=== PATIENT | male | born 1970 | race Caucasian/White ===

== ENCOUNTER 2021-08-25 10:15 | Emergency (ER) | payer MEDICAID, OTHER ==
[~2021-08-25] VITALS: Ht 185.4 cm; Wt 136.1 kg
[~2021-08-25 10:15] MED LIST: ACET-2619
[2021-08-25 10:18] VITALS: BP 123/79
--- NOTE | 2021-08-25 10:24 | NUR ---
PT AMB TO BED 9
--- NOTE | 2021-08-25 10:29 | NUR ---
50 Y MALE WITH C/O LLQ ABD PAIN X TODAY. PT STATED HE LAST DRANK BEER & SMOKED MARIJUANA X YESTERDAY, WHICH MADE THE PAIN WORSE. PT +N/-V/-D AT THIS TIME. LAST BM WAS LAST NIGHT AND WAS NORMAL FOR PATIENT. BOWEL SOUNDS ACTIVE AT THIS TIME AND NO TENDERNESS NOTED. PT STATED PAIN IS CURRENTLY 8/10 AND SHARP LIKE PAIN. PT SKIN DRY AND INTACT AND THIS TIME. 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
--- NOTE | 2021-08-25 11:01 | NUR ---
DR. MOLINA BEDSIDE EVALUATING PT
--- NOTE | 2021-08-25 11:25 | NUR ---
PT AMBULATED TO RESTROOM FOR UA COLLECTION.
[2021-08-25] MEDS: MORPHINE SULFATE 4 MG/ML SYR IVP ONE (11:26)
--- NOTE | 2021-08-25 11:28 | NUR ---
PT AMBULATED TO ER BED 9 WITH A STEADY GAIT.
--- NOTE | 2021-08-25 11:31 | NUR ---
20 G IV ESTABLISHED IN R AC AND BLOOD WORK COLLECTED FROM IV.
--- NOTE | 2021-08-25 11:31 | NUR ---
BLOOD WORK COLLECTED AND URINE WALKED OVER TO LAB BY SUPPORTIVE EMPLOYMENT CASE MANAGER CANDELARIO
[2021-08-25 11:44] LABS: BASOPHILS % (AUTO) 0.4 % (0.0-2.0); EOSINOPHILS % (AUTO) 0.4 % (0.0-4.0); HEMATOCRIT 40.8 % (36-52); LYMPHOCYTES # (AUTO) 1.3 K/uL (2.0-11.5); LYMPHOCYTES % (AUTO) 13.5 % (20.5-51.1); MEAN CORPUSCULAR HEMOGLOBIN 31 pg (27-31); MEAN CORPUSCULAR HGB CONC 34 g/dL (33-37); MEAN CORPUSCULAR VOLUME 90.9 fL (80-94); MONOCYTES # (AUTO) 0.5 K/uL (0.8-1.0); MONOCYTES % (AUTO) 5.1 % (1.7-9.3); NEUTROPHILS # (AUTO) 7.7 K/uL (1.8-7.7); NEUTROPHILS % (AUTO) 80.6 % (42.2-75.2); PLATELET COUNT (AUTO) 286 K/uL (140-450); RED BLOOD CELL COUNT(AUTO) 4.48 MIL/uL (4.20-6.10); RED CELL DISTRIBUTION WIDTH 13.5 % (11.6-13.7); WHITE BLOOD COUNT (AUTO) 9.5 K/uL (4.8-10.8)
[2021-08-25 11:47] LABS: APPEARANCE,URINE CLEAR (CLEAR); BILIRUBIN,URINE NEGATIVE (NEGATIVE); BLOOD, URINE 3+ (NEGATIVE); COLOR,URINE YELLOW (YELLOW); LEUKOCYTE ESTERASE ,URINE NEGATIVE (NEGATIVE); NITRITE, URINE NEGATIVE (NEGATIVE); UGLUCOSE 1+ (NEGATIVE)
[2021-08-25 11:50] LABS: ANION GAP 14.5 (8-16); CARBON DIOXIDE 29.4 mmol/L (21-32); CREATININE 1.1 mg/dL (0.6-1.3); POTASSIUM 3.9 mmol/L (3.5-5.1)
[2021-08-25 11:54] LABS: WBC,URINE 0-5 /HPF (0-5)
[2021-08-25 11:55] LABS: RBC,URINE 50-80 /HPF (0-5)
[2021-08-25 12:02] LABS: ALBUMIN 3.9 g/dL (3.4-5.0); TOTAL BILIRUBIN 0.3 mg/dL (0.0-1.0)
--- NOTE | 2021-08-25 12:20 | NUR ---
Patient appears to be resting comfortably in bed. Vital Signs within normal limits. Respirations even and unlabored.
[2021-08-25] MEDS ORDERED: IBUP-2213 PO (13:26)
[2021-08-25 13:41] VITALS: BP 139/89
== END 2021-08-25 13:41 | disposition home or self-care (01) ==
LOC: MED 10:15
DX: N20.9 Urinary calculus, unspecified (principal); R31.9 Hematuria, unspecified; F17.210 Nicotine dependence, cigarettes, uncomplicated; Z71.6 Tobacco abuse counseling; Z79.1 Long term (current) use of non-steroidal anti-inflammatories (NSAID); Z79.899 Other long term (current) drug therapy
CPT/HCPCS: 36415; 80053; 81001; 85025; 99284; J2270

== ENCOUNTER 2022-12-28 23:15 | Emergency (ER) | payer OTHER ==
[~2022-12-28] VITALS: Ht 185.4 cm; Wt 125.8 kg
[~2022-12-28 23:15] MED LIST changes: +IBUP-2213 PO
[2022-12-28 23:53] VITALS: BP 173/97
--- NOTE | 2022-12-28 23:58 | NUR ---
PT TAKEN TO BED 8
[2022-12-29] MEDS ORDERED: NACL 0.9% 1,000 ML IV ONE
[2022-12-29 00:19] LABS: BASOPHILS # (AUTO) 0.1 K/uL (0.00-0.22); BASOPHILS % (AUTO) 0.9 % (0.0-2.0); EOSINOPHILS # (AUTO) 0.1 K/uL (0-0.4); EOSINOPHILS % (AUTO) 1.5 % (0.0-4.0); HEMATOCRIT 41.8 % (36-52); HEMOGLOBIN 14.3 g/dL (12.0-18.0); LYMPHOCYTES # (AUTO) 1.8 K/uL (2.0-11.5); LYMPHOCYTES % (AUTO) 29.9 % (20.5-51.1); MEAN CORPUSCULAR HEMOGLOBIN 31 pg (27-31); MEAN CORPUSCULAR HGB CONC 34 g/dL (33-37); MEAN CORPUSCULAR VOLUME 89.4 fL (80-94); MONOCYTES # (AUTO) 0.5 K/uL (0.8-1.0); MONOCYTES % (AUTO) 7.9 % (1.7-9.3); NEUTROPHILS # (AUTO) 3.5 K/uL (1.8-7.7); NEUTROPHILS % (AUTO) 59.8 % (42.2-75.2); PLATELET COUNT (AUTO) 270 K/uL (140-450); RED BLOOD CELL COUNT(AUTO) 4.68 MIL/uL (4.20-6.10); RED CELL DISTRIBUTION WIDTH 13.4 % (11.6-13.7); WHITE BLOOD COUNT (AUTO) 5.9 K/uL (4.8-10.8)
--- NOTE | 2022-12-29 00:21 | NUR ---
UA collected and sent to lab
[2022-12-29 00:29] LABS: ACETONE, SERUM NEGATIVE (NEGATIVE)
[2022-12-29 00:38] LABS: ALBUMIN 3.8 g/dL (3.4-5.0); ANION GAP 10.7 (8-16); ASPARTATE AMINOTRANSFERASE 18 U/L (15-37); CARBON DIOXIDE 27.4 mmol/L (21-32); CHLORIDE 96 mmol/L (98-107); GFR ARICAN-AMERICAN 101 mL/min (>90); POTASSIUM 4.1 mmol/L (3.5-5.1); SODIUM SERUM 130 mmol/L (136-145); TOTAL BILIRUBIN 0.3 mg/dL (0.0-1.0); UREA NITROGEN, BLOOD 16 mg/dL (7-18)
[2022-12-29 00:40] LABS: GLUCOSE 424 mg/dL (74-106)
--- NOTE | 2022-12-29 01:14 | NUR ---
Patient received on bed lying comfortably and awake. Alert and oriented x4. No acute distress. No complaints of pain or discomfort. Respirations even and unlabored.
[2022-12-29] MEDS ORDERED: METF-346 PO (02:02)
[2022-12-29 02:06] VITALS: BP 155/87
== END 2022-12-29 02:08 | disposition home or self-care (01) ==
LOC: MED 23:15
DX: R73.9 Hyperglycemia, unspecified (principal); Z87.891 Personal history of nicotine dependence; Z79.899 Other long term (current) drug therapy; Z79.1 Long term (current) use of non-steroidal anti-inflammatories (NSAID)
CPT/HCPCS: 36415; 80053; 82009; 82948; 85025; 96360; 99283; J7030